=== PATIENT | female | born 2000 | race Caucasian/White ===

== ENCOUNTER 2023-10-14 19:44 | Inpatient (IN) | payer OTHER, SELFPAY ==
[2023-10-14 15:51] VITALS: BP 128/79
--- NOTE | 2023-10-14 16:47 | ED.GENMED ---
History of Present Illness
General
Chief Complaint: Urinary Symptoms
Source: patient
Exam Limitations: none
Time Seen by Provider: 10/14/23 16:37
Nursing documentation reviewed up to this point in time: agreed with
Travel History
Have you had any contact with someone who has COVID-19?: No
Do you have any symptoms of coronavirus? Fever > 100 degrees, chills, cough, shortness of breath, sore throat, loss of taste or smell, muscle aches, or headache?: Yes
Symptoms:: see above
History of Present Illness
History of Present Illness:
23 yo female here with flank pain, UTI symptoms fever. 8 days ago developed frequency of urination with small amounts. Increased her H2O intake and too cranberry pills, felt better for 2 days. 6 days ago developed low grade fevers, left flank pain,
headache, decreased appetite. Past 5 days has had fever 100-101, n/v, can't hold anything down, left flank pain worse and now in right flank as well. For past 2-3 days had had LLQ pain also.
Review of Systems
Review of Systems
Allergies reviewed?: Yes
All Other Systems: ROS reviewed and negative except as documented in HPI and ROS
Constitutional: Reports fever and fatigue
Respiratory: Denies trouble breathing
Cardiac: Denies chest pain
ABD/GI: Reports abdominal pain, nausea and vomiting; Denies diarrhea
: Reports frequency, difficulty voiding and urgency
Musculoskeletal: Reports no symptoms
Skin: Reports no symptoms
Neurological: Reports no symptoms
Phy Exam
Physical Exam
Physical Exam:
GENERAL: No acute distress. A&Ox3.
CONSTITUTIONAL: 100.4
EYES: clear, conjunctivae normal
ENMT: moist mucus membranes, Pharynx nl
RESPIRATORY: Regular respirations, nonlabored, lungs clear.
CARDIOVASCULAR: Regular rate and rhythm, no murmurs, no rubs.
GI: Soft, left flank tenderness, mild LLQ tenderness, normal BS
MUSCULOSKELETAL: Moves with ease. Well perfused.
SKIN: Warm, dry, pink
PSYCH: Normal mood and affect. Well kept, interactive and appropriate
NEUROLOGIC: Awake, alert and oriented. No focal neurological deficits
Course
Orders/Labs/Results
Orders:
Orders
10/14/23 16:46
Test Result ONCE
10/14/23 16:47
CT Abd/Pel (IV only)-DH only Urgent
Comment:
Reason For Exam: UTI sx, general abd pain, fever
0.9% Sodium Chloride 1000 ml [Nss] 1,000 ml IV BOLUS
10/14/23 17:04
Complete Blood Count/With Diff Urgent
Comprehensive Metabolic Panel Urgent
HCG, Serum Qualitative Screen Urgent
Lactic Acid Urgent
Lipase Urgent
Urinalysis Reflex To Culture Urgent
Date Specimen was Collected: 10/14/23
Time Specimen was Collected: 16:54
Urine Microscopic Reflex Cult Urgent
Blood Culture Q30M
ANNETTE Source: Blood/Venous
Specimen Description:
Urine Culture Urgent
ANNETTE Source: U
Specimen Description:
Date Specimen was Collected: 10/14/23
Time Specimen was Collected: 16:54
10/14/23 17:06
Blood Culture Q30M
ANNETTE Source: Blood/Venous
Specimen Description:
10/14/23 17:16
Acetaminophen [Tylenol] 1,000 mg PO NOW STA
10/14/23 17:20
Ondansetron Injectable [Zofran] 4 mg IV NOW STA
10/14/23 18:11
CefTRIAXone [Rocephin] 1,000 mg IV NOW STA
10/14/23 19:20
Admit/Transfer Patient As Directed
Co-Sign Provider:
Level of Care: Inpatient admission
Assign to:: Medical/Surgical
Physician / Group: Javier
Diagnosis: Pyelonephritis
Reason for Hospitalization: Pyelonephritis
Expected length of stay greater than two midnights?: Yes
ELOS- Estimated Length of Stay in days: 2
I certify the patient meets the requirements for IP care: Yes
Code Status As Directed
Resuscitation Status: Full Code
10/14/23 19:31
Ondansetron Injectable [Zofran] 4 mg .ROUTE .STK-MED ONE
10/14/23 19:32
Ondansetron Injectable [Zofran] 4 mg IV NOW STA
10/14/23 20:15
Acetaminophen [Tylenol] 650 mg PO Q4HPRN PRN
HYDROmorphone [Dilaudid] 0.5 mg IV Q4HPRN PRN
Ketorolac [Toradol] 10 mg IV Q6HPRN PRN
Lactated Ringers [Lr] 1,000 ml IV 125 mls/hr
Ondansetron Injectable [Zofran] 4 mg IV Q6HPRN PRN
10/14/23 20:15
Activity As Directed
Activity Level: Ambulate
Bladder Scan As Directed
Follow Bladder Retention/Intermittent Cath Algorithm?: Yes
PRN if no void in __ hours: 6
Frequency: Per Retention Algorithm
If Bladder Scan Result >: 400
then:: Straight cath
I/O [Intake/ Output] As Directed
Frequency: Per unit guidelines
Pneumatic Compression Sleeves As Directed
Type: Knee high
Straight Cath As Directed
Frequency: Per Retention Algorithm
Additional Instructions: straight cath as needed per acute urinary retention algorithm for 24 hrs
Additional Instructions: for bladder scan greater than 400 mL
Vital Signs As Directed
Frequency: Per unit guidelines
DX Deep Vein Thrombosis Video Routine
10/15/23 Breakfast
Regular
At Your Request: Full Participation
Does patient need a safe tray?: No
Basic Metabolic Panel IN AM
Complete Blood Count/No Diff IN AM
10/15/23 18:00
CefTRIAXone [Rocephin] 1,000 mg IV Q24H
Abnormal Lab Results
10/14/23
17:04
RBC 4.13 L 10^6/uL
(4.20-5.40)
Hct 34.9 L %
(37.0-47.0)
Absolute Lymphs (auto) 0.9 L 10^3/uL
(1.2-3.4)
Absolute Monos (auto) 0.9 H 10^3/uL
(0.1-0.6)
Neutrophils % 75.7 H %
(42.2-75.2)
Lymphocytes % 12.4 L %
(20.5-51.1)
Monocytes % 11.2 H %
(1.7-9.3)
Potassium 3.3 L mmol/L
(3.5-5.1)
Lipase 22 L U/L
(23-300)
Urine Ketones 3+ A
(Negative)
Ur Occult Blood Reflex 4+ A
(Negative)
Urine Nitrite (Reflex) Positive A
(Negative)
Leukocyte Esterase Rfl 2+ A
(Negative)
Urine WBC (Reflex) 26-30 A /HPF
(0-5)
Urine Bacteria (Reflex) Many A
(Negative)
10/14/23 17:04
10/14/23 17:04
Vital Signs
Initial and Last Documented VS:
Initial Vital Signs
Temp Pulse Resp BP Pulse Ox
100.4 F H 101 18 128/79 99
10/14/23 15:51 10/14/23 15:51 10/14/23 15:51 10/14/23 15:51 10/14/23 15:51
Last Documented Vital Signs
Temp Pulse Resp BP Pulse Ox
97.9 F 70 16 100/61 100
10/14/23 23:25 10/14/23 23:25 10/14/23 23:25 10/14/23 23:25 10/14/23 23:25
MDM/Problems Addressed
Differential Diagnosis Includes:
UTI, pyelonephritis
MDM/Problems Addressed:
23 yo female here with flank pain, UTI symptoms fever. 8 days ago developed frequency of urination with small amounts. Increased her H2O intake and too cranberry pills, felt better for 2 days. 6 days ago developed low grade fevers, left flank pain,
headache, decreased appetite. Past 5 days has had fever 100-101, n/v, can't hold anything down, left flank pain worse and now in right flank as well. For past 2-3 days had had LLQ pain also.
Temp 102.2 for this examiner
6:30 p.m.
CBC: no clinically significant abnormality
CMP: no clinically significant abnormality
U/A: Nitrite and Leukocyte pos, WBC 26-30, 4+occult blood, many bacteria
Ct abd/pelvis w po and iv contrast radiology report read: IMPRESSION:
1. SEVERE ACUTE LEFT PYELONEPHRITIS.
2. ACUTE CYSTITIS.
3. Mild hepatosplenomegaly.
4. Small amount of peritoneal fluid in the pelvic cul-de-sac.
Hospitalist notified of admission
*Critical Care Note
Total Time (30-74mins, 75-104mins- exclusive of procedures): Not Applicable
Patient Management
Social determinants of health affecting care: Strong social support (mom at bedside)
ED Attending Note
-
Portions of this chart may have been created with voice recognition software.� Occasional wrong word or��sound alike� substitutions may have occurred due to the inherent limitations of voice recognition software.
Discharge Plan
Departure
Patient Disposition: Admit
Date of Disposition: 10/14/23
Time of Disposition: 18:31
Admit to: Med/Surg
Presentation/result/management discussed w/ accepting MD/DO: Hospitalist
Condition: Fair
Discharge Problem:
Pyelonephritis of left kidney
Interventions
Interventions:
*Risk Screen - Suicide Last Done: 10/14/23 17:30
*General Assessment Last Done: 10/14/23 15:51
*Neglect/Abuse Screening Last Done: 10/14/23 15:51
ED- Fall Risk Assessment Last Done: 10/14/23 17:17
*ED COVID-19 Vaccine History Last Done: 10/14/23 15:51
*Nursing Disposition Last Done: 10/14/23 20:12
ED-Female Genitourinary Assessment Last Done: 10/14/23 17:17
Discharge Date and Time
Discharge Date/Time: 10/14/23 20:13
[2023-10-14] MEDS: NSS 1000 IV (17:06)
[2023-10-14 17:07] VITALS: BMI 21.6
[2023-10-14 17:17] LABS: % Basophils 0.3 % (0-2); % Eosinophils 0.1 % (0-6); % Immature Granulocytes 0.3 % (0-0.5); % Lymphocytes 12.4 % (20.5-51.1); % Monocytes 11.2 % (1.7-9.3); % Neutrophils 75.7 % (42.2-75.2); Absolute Lymphocytes 0.9 10^3/uL (1.2-3.4); Absolute Monocytes 0.9 10^3/uL (0.1-0.6); Absolute Neutrophils 5.8 10^3/uL (1.4-6.5); Hematocrit 34.9 % (37.0-47.0); Hemoglobin 12.5 g/dL (12.0-16.0); Mean Corp Hgb Conc. 35.8 g/dL (33.0-37.0); Mean Corpuscular Hgb 30.3 pg (27.0-31.0); Mean Corpuscular Volume 84.5 fL (81.0-99.0); Mean Platelet Volume 9.4 fL (7.4-10.4); Nucleated Red Blood Cells % 0 %; Platelet Count 230 10^3/uL (130-400); Red Blood Cell Count 4.13 10^6/uL (4.20-5.40); White Blood Cell Count 7.6 10^3/uL (4.8-10.8)
[2023-10-14 17:18] LABS: Urine Albumin Trace (Neg - Trace); Urine Bilirubin Negative (Negative); Urine Character Clear (Clear); Urine Color Yellow; Urine Glucose Negative (Negative); Urine Ketone 3+ (Negative); Urine Leukocyte 2+ (Negative); Urine Nitrite Positive (Negative); Urine Occult Blood 4+ (Negative); Urine Urobilinogen Negative (Neg - 1+)
[2023-10-14] MEDS: ZOFRAN 4 MG IV ×2 (17:26→19:32)
[2023-10-14] MEDS: TYLENOL 1000 MG PO (17:26)
[2023-10-14 17:27] LABS: Urine Bacteria Many (Negative); Urine Red Blood Cell 0-2 /HPF (0-2); Urine White Cell 26-30 /HPF (0-5)
[2023-10-14 17:33] LABS: HCG, Serum Qualitative Screen Negative
[2023-10-14 17:35] LABS: Lactic Acid 0.8 mmol/L (0.7-2.0)
[2023-10-14 17:36] LABS: ALT (SGPT) 12 U/L (0-35); AST (SGOT) 21 U/L (14-36); Alkaline Phosphatase 61 U/L (38-126); Blood Urea Nitrogen 10 mg/dl (7-17); Calcium 8.9 mg/dl (8.4-10.2); Carbon Dioxide 27 mmol/L (22-30); Chloride 98 mmol/L (98-107); Estimated Creatinine Clearance > 125 ml/min; Glucose 91 mg/dl (70-99); Lipase 22 U/L (23-300); Potassium 3.3 mmol/L (3.5-5.1); Sodium 136 mmol/L (135-145); Total Bilirubin 1.1 mg/dl (0.2-1.3); Total Protein 6.9 g/dl (6.3-8.2); eGFR > 60.00
[2023-10-14] MEDS: ROCEPHIN 1000 MG IV (18:28)
--- NOTE | 2023-10-14 19:25 | HPS.HSE ---
Family Physician
-
Family Physician: * NONE
Chief Complaint
-
Fever / Flank Pain
History of Present Illness
Patient is a 23y F with no significant PMH who presents to ED complaining of fever x 1 week. Patient states she initially started with urinary symptoms of burning, frequency, urgency last weekend. She drank lots of fluids and took cranberry
supplements and her symptoms seemed to improve. However, she then developed fevers with myalgias, fatigue and general achiness. She developed nausea and has had multiple episodes of non-bloody, bilious emesis. She has had difficulty tolerating PO
intake as a result. She reports pain in the L abdomen as well as pain across the mid back.
Patient denies history of frequent UTIs.
She denies any other current complaints or concerns.
She has no chronic health issues and takes no medications.
Medical History
Past Medical History
Past Medical History: Reports None
Past Surgical History: Reports Other
Additional Past Surgical History:
R ACL Repair
Social History
Tobacco: Smoker (Current some day smoker. < 10 pack years.)
Alcohol: None
Drug: None
Family History
Family History: Other (Mother: SLE MGF: Lung Cancer)
Allergies / Home Medications
Allergies reflects when Allergies were last updated in [facility].
Home Medications with original date entered in [facility]
Allergy/Medication List:
Allergies
Allergy/AdvReac Type Severity Reaction Status Date / Time
No Known Allergies Allergy Unverified 10/14/23 15:57
Home Medications
No Meds [No Current Medications] 10/14/23
Review of Systems
-
History Source: Patient
A 12 point ROS was completed and negative except as noted: Yes
Constitutional: Reports Fever, Fatigue and Chills
EENT: Denies Sore Throat
Respiratory: Denies Cough or Trouble Breathing
Cardiac: Denies Chest Pain or Palpitations
Abdomen/GI: Reports Abdominal Pain, Nausea and Vomiting; Denies Diarrhea or Constipated
: Reports Dysuria, Frequency and Flank Pain
Musculoskeletal: Denies Joint Pain or Edema
Neurological: Denies Dizzy or Headache
Physical Exam
Vital Signs
Vital Signs
Temp Pulse Resp BP Pulse Ox
99.4 F 101 18 128/79 99
10/14/23 18:29 10/14/23 15:51 10/14/23 15:51 10/14/23 15:51 10/14/23 15:51
Physical Exam
General: Other (23y F in no acute distress.)
HEENT: Moist mucous membranes and PERRLA
Respiratory: Clear; No Wheezes, Rales or Rhonchi
Cardiac: S1/S2 and Regular Rhythm; No Murmur
GI: Soft, Non Distended, Normal Bowel Sounds and Other (Mild L sided abdominal tenderness without rebound or guarding.)
Genito-urinary: Other (Left CVA tenderness.)
Musculoskeletal: No Clubbing, No Cyanosis and No Edema
Neuro: AO x 3
Laboratory Results
-
10/14/23 17:04
10/14/23 17:04
Laboratory Results
Lactic Acid 0.8 mmol/L (0.7-2.0) 10/14/23 17:04
Total Bilirubin 1.1 mg/dl (0.2-1.3) 10/14/23 17:04
AST 21 U/L (14-36) 10/14/23 17:04
ALT 12 U/L (0-35) 10/14/23 17:04
Alkaline Phosphatase 61 U/L (38-126) 10/14/23 17:04
Lipase 22 U/L (23-300) L 10/14/23 17:04
Impression/Plan
-
A/P: Patient is a 23y F with no significant PMH who presents to ED complaining of fevers x 1 week, abdominal pain, flank pain and N/V.
Left Pyelonephritis
Sepsis secondary to the above
- Admit for further evaluation and treatment.
- Patient presents with UTI / pyelo, fever and tachycardia.
- IV abx until fever-free x 24 hours then switch to PO medications to complete course.
- Supportive care including IVFs, pain control, antiemetics, etc.
- Follow for clinical improvement.
- Follow-up culture data and adjust abx therapy as needed.
Mild Hypokalemia
- Likely secondary to GI losses, N/V.
- IVFs with LR and follow for improvement.
DVT Prophylaxis: SCDs
Code Status: Full
[2023-10-14 20:26] VITALS: BP 113/75; BMI 21.7
[2023-10-14] MEDS: LR 1000 IV (20:35)
--- NOTE | 2023-10-14 20:57 | PTCARENOTE ---
Patient arrived from the ED via stretcher. Patient ambulated into the room, accompanied by mother. AAOx3, VSS. Oral temp of 97.8. No complaints of pain at this time. Patient oriented to the room. Call hastings is within reach.
[2023-10-14 23:25] VITALS: BP 100/61
[2023-10-15] MEDS: TYLENOL 650 MG PO ×3 (02:47→20:17)
[2023-10-15] MEDS: LR 1000 IV ×3 (05:21→22:17)
[2023-10-15 07:35] VITALS: BP 107/64
[2023-10-15 07:51] LABS: Hemoglobin 11.2 g/dL (12.0-16.0); Mean Corp Hgb Conc. 33.9 g/dL (33.0-37.0); Mean Corpuscular Hgb 29.9 pg (27.0-31.0); Mean Corpuscular Volume 88.2 fL (81.0-99.0); Mean Platelet Volume 9.6 fL (7.4-10.4); Platelet Count 223 10^3/uL (130-400); Red Blood Cell Count 3.74 10^6/uL (4.20-5.40); Red Cell Dist. Width 12.9 % (11.5-14.5); White Blood Cell Count 6.4 10^3/uL (4.8-10.8)
[2023-10-15 08:08] LABS: Blood Urea Nitrogen 7 mg/dl (7-17); Calcium 8.5 mg/dl (8.4-10.2); Carbon Dioxide 28 mmol/L (22-30); Chloride 102 mmol/L (98-107); Estimated Creatinine Clearance > 125 ml/min; Glucose 85 mg/dl (70-99); Potassium 3.5 mmol/L (3.5-5.1); Sodium 137 mmol/L (135-145); eGFR > 60.00
--- NOTE | 2023-10-15 08:16 | W.PN.HOSP.TC ---
Today's Communication/Plan
-
Continue IV fluids
Continue IV antibiotics
Antiemetics
Await cultures
Replete potassium
Assessment / Plan
Assessment / Plan
Gen-AAOx3, NAD
HEENT-NC, AT, anicteric, clear oral mm
Neck-supple
CV-reg, no M, +S1/S2
Lungs-clear B/L
Abd-soft, NT, ND
Ext-no edema
Musculoskeletal-no cyanosis, clubbing, mild left flank tenderness
Skin-warm and dry
Neuro-grossly non-focal
Psych-calm, cooperative
Sepsis due to acute left-sided pyelonephritis -hemodynamically stable. Continue IV fluids, IV antibiotics. Await cultures. Denies history of sepsis or UTIs. Was not on antibiotics prior to admission.
CT abdomen and pelvis on admission shows severe acute left-sided pyelonephritis, acute cystitis, mild hepatosplenomegaly.
Intractable vomiting related to have pyelonephritis and sepsis. Continue antiemetics as needed.
Hypokalemia -improving.
Full code
Anticipated Discharge: Within 24 hours
Subjective/Interval History
-
Date of Service: October 15, 2023
Patient seen and examined. Starting to feel better. No complaints.
Objective Data
-
Labs:
Laboratory Results
10/15/23
07:24
WBC 6.4
Hgb 11.2 L
Hct 33.0 L
Plt Count 223
Sodium 137
Potassium 3.5
Chloride 102
Carbon Dioxide 28
BUN 7
Creatinine 0.6
Glucose 85
Calcium 8.5
Vital Signs:
Vital Signs
Temp Pulse Resp BP Pulse Ox
99.4 F 70 16 100/61 100
10/15/23 02:57 10/14/23 23:25 10/14/23 23:25 10/14/23 23:25 10/14/23 23:25
I&O
10/14/23 10/15/23 10/16/23
06:59 06:59 06:59
Intake Total 4875 / 9742
Balance 9926 / 8826
Review of Systems
-
History Source: Patient
All other systems: Reviewed and negative
[2023-10-15] MEDS: KCL 20 MEQ PO (09:08)
[2023-10-15] MEDS: ZOFRAN 4 MG IV (09:10)
[2023-10-15 12:45] VITALS: BMI 21.7
[2023-10-15 15:30] VITALS: BP 112/70
--- NOTE | 2023-10-15 15:37 | CM ---
CM met with pt bedside
Pt resides alone in a 2nd floor apartment- no elevator
Full flight to apartment
Pt is independent with her ADLs- no DMEs
Pt is uninsured- noting her MA lapsed beginning of the year
PCP- none
Rx- [facility]
Referral made to [facility] for MA
Discharge Disposition- home, no needs anticipated
[2023-10-15] MEDS: STERILE WATER FOR INJECTION 10 ML IV (17:22)
[2023-10-15] MEDS: ROCEPHIN 1000 MG IV (17:22)
[2023-10-15 23:22] VITALS: BP 114/67
[2023-10-16] MEDS: NSS 1000 IV (05:40)
[2023-10-16 08:14] VITALS: BP 118/74
--- NOTE | 2023-10-16 09:23 | W.PN.HOSP.TC ---
Today's Communication/Plan
-
Continue IV antibiotics. Follow-up cultures
Assessment / Plan
Assessment / Plan
Gen-AAOx3, NAD
HEENT-NC, AT, anicteric, clear oral mm
Neck-supple
CV-reg, no M, +S1/S2
Lungs-clear B/L
Abd-soft, NT, ND
Ext-no edema
Musculoskeletal-no cyanosis, clubbing, mild left flank tenderness
Skin-warm and dry
Neuro-grossly non-focal
Psych-calm, cooperative
A/P:
Sepsis due to acute left-sided pyelonephritis -hemodynamically stable. Stop IV fluids, continue IV antibiotics. Cultures E. coli but sensitivity pending. Await cultures. Denies history of sepsis or UTIs. Was not on antibiotics prior to
admission. Check CESAR testing. She has a family history on her mother of systemic lupus and also she had multiple issues before with rash, arthralgias, intermittent in nature. I discussed with patient results needs to be evaluated in the right
clinical context and will need close follow-up as outpatient.
CT abdomen and pelvis on admission shows severe acute left-sided pyelonephritis, acute cystitis, mild hepatosplenomegaly.
Intractable vomiting related to have pyelonephritis and sepsis. Continue antiemetics as needed.
Anemia
Likely dilutional
Monitoring
Hypokalemia -improving. K 3.5 today
Full code
Anticipated Discharge: Within 24 hours
Subjective/Interval History
-
Date of Service: October 16, 2023
Patient feels better today. Afebrile
Objective Data
-
Vital Signs:
Vital Signs
Temp Pulse Resp BP Pulse Ox
98.7 F 71 14 118/74 98
10/16/23 08:14 10/16/23 08:14 10/16/23 08:14 10/16/23 08:14 10/16/23 08:14
I&O
10/15/23 10/16/23 10/17/23
06:59 06:59 06:59
Intake Total 2575 / 2575 4920 / 4920
Balance 2575 / 2575 4920 / 4920
[2023-10-16] MEDS: KCL 20 MEQ PO (09:28)
--- NOTE | 2023-10-16 12:09 | CM ---
Patient seen bedside, reports no needs to CM at this time. Patient on IV antibiotics. CM will continue to follow for all discharge planning needs.
Plan; home no needs anticipated.
[2023-10-16 15:46] VITALS: BP 117/73
[2023-10-16] MEDS: ROCEPHIN 1000 MG IV (17:52)
[2023-10-16] MEDS: STERILE WATER FOR INJECTION 10 ML IV (17:52)
[2023-10-16] MEDS: NSS IV (17:56)
[2023-10-16 23:55] VITALS: BP 101/53
[2023-10-17 06:35] LABS: % Basophils 0.7 % (0-2); % Lymphocytes 36.7 % (20.5-51.1); % Monocytes 8.8 % (1.7-9.3); % Neutrophils 51.8 % (42.2-75.2); Absolute Eosinophils 0.1 10^3/uL (0-0.7); Absolute Lymphocytes 1.7 10^3/uL (1.2-3.4); Absolute Monocytes 0.4 10^3/uL (0.1-0.6); Absolute Neutrophils 2.4 10^3/uL (1.4-6.5); Hematocrit 33.9 % (37.0-47.0); Hemoglobin 11.4 g/dL (12.0-16.0); Mean Corp Hgb Conc. 33.6 g/dL (33.0-37.0); Mean Corpuscular Hgb 29.3 pg (27.0-31.0); Mean Corpuscular Volume 87.1 fL (81.0-99.0); Mean Platelet Volume 9.5 fL (7.4-10.4); Nucleated Red Blood Cells % 0 %; Platelet Count 292 10^3/uL (130-400); Red Blood Cell Count 3.89 10^6/uL (4.20-5.40); Red Cell Dist. Width 13.2 % (11.5-14.5); White Blood Cell Count 4.6 10^3/uL (4.8-10.8)
[2023-10-17 07:09] LABS: Blood Urea Nitrogen 7 mg/dl (7-17); Calcium 9.4 mg/dl (8.4-10.2); Carbon Dioxide 24 mmol/L (22-30); Chloride 105 mmol/L (98-107); Estimated Creatinine Clearance > 125 ml/min; Glucose 112 mg/dl (70-99); Sodium 139 mmol/L (135-145); eGFR > 60.00
[2023-10-17 07:40] VITALS: BP 103/66
--- NOTE | 2023-10-17 08:22 | W.PN.HOSP.TC ---
Addendum entered and electronically signed by Arian San MD 10/18/23 16:08:
Mild malnutrition of acute illness
Original Note:
Today's Communication/Plan
-
Discharge planning today.
Assessment / Plan
Assessment / Plan
Gen-AAOx3, NAD
HEENT-NC, AT, anicteric, clear oral mm
Neck-supple
CV-reg, no M, +S1/S2
Lungs-clear B/L
Abd-soft, NT, ND
Ext-no edema
Musculoskeletal-no cyanosis, clubbing, mild left flank tenderness
Skin-warm and dry
Neuro-grossly non-focal
Psych-calm, cooperative
A/P:
Sepsis due to acute left-sided pyelonephritis -hemodynamically stable. Stop IV fluids, change IV antibiotics to oral today. Reviewed culture sensitivity E. coli. Denies history of sepsis or UTIs. Was not on antibiotics prior to admission.
Checking CESAR testing. She has a family history on her mother of systemic lupus and also she had multiple issues before with rash, arthralgias, intermittent in nature. I discussed with patient results needs to be evaluated in the right clinical
context and will need close follow-up as outpatient.
CT abdomen and pelvis on admission shows severe acute left-sided pyelonephritis, acute cystitis, mild hepatosplenomegaly.
Intractable vomiting related to have pyelonephritis and sepsis. Continue antiemetics as needed.
Anemia
Likely dilutional
Monitoring
Hypokalemia -improving. K 4 today
Full code
Anticipated Discharge: Today
Subjective/Interval History
-
Date of Service: October 17, 2023
Patient feels well today. Afebrile. Wants to go home
Objective Data
-
Labs:
Laboratory Results
10/17/23
06:06
WBC 4.6 L
Hgb 11.4 L
Hct 33.9 L
Plt Count 292 D
Sodium 139
Potassium 4.0
Chloride 105
Carbon Dioxide 24
BUN 7
Creatinine 0.6
Glucose 112 H
Calcium 9.4
Vital Signs:
Vital Signs
Temp Pulse Resp BP Pulse Ox
98.4 F 77 16 103/66 100
10/17/23 07:40 10/17/23 07:40 10/17/23 07:40 10/17/23 07:40 10/17/23 07:40
I&O
10/16/23 10/17/23 10/18/23
06:59 06:59 06:59
Intake Total 4920 / 4920 2160 / 2160
Balance 4920 / 4920 2160 / 2160
[2023-10-17] MEDS: KCL 20 MEQ PO (09:52)
[2023-10-17 12:00] VITALS: BP 108/64
--- NOTE | 2023-10-17 12:26 | W.DCSUMMARY ---
Discharge Summary
Discharge Data
Date of Admission: 10/14/23
Date of Discharge: 10/17/23
-
Pending Results: No
Hospital Course
Patient 23 years old female with no significant medical history came into the hospital with sepsis due to left-sided pyelonephritis. She was treated with IV antibiotics and IV fluids and her urine culture came in with E. coli and antibiotics were
tailored to sensitivity. Patient also wanted to be tested for CESAR for possible lupus since her family has SLE. She does not have any signs of flare at the moment but based on her description it is possible that she might have had some symptoms in
the past so encouraged her to follow-up with primary care as outpatient since current results are pending and she may need further evaluation. Otherwise, patient is hemodynamically stable and afebrile and her urinary symptoms subsided. She is
going to be discharged in stable condition today.
Discharge duration: 33 minutes
Discharge Plan
-
Patient Disposition: Home (Routine Discharge)
Discharge Diagnosis/Procedures: Urinary tract infection/pyelonephritis. Sepsis.
Diet: Low Cholesterol
Activity: As tolerated
Driving Restrictions: As prior to admission
Blood Work: Please PCP to order CBC, BMP within 1 week
Referrals:
Primary care, provider [Other] (See less than 1 week)
Prescriptions:
New
cephalexin 500 mg Capsule
500 mg PO BID 7 Days Qty: 14 0RF
Continued
acetaminophen [Tylenol] 325 mg Tablet
650 mg PO TIDPRN PRN (Reason: mild pain)
Discharge Orders:
Discharge Patient (As Directed); Ordered 10/17/23
Ordered By: Arian San
Discharge Date and Time
Discharge Date/Time: 10/17/23 14:26
Print Language: KOREAN
[2023-10-17] MEDS: KEFLEX 500 MG PO (13:34)
--- NOTE | 2023-10-17 15:04 | CM ---
CM reviewed chart, patient plan home no needs. CM will continue to follow for discharge planning needs.
Plan; home no needs.
--- NOTE | 2023-10-18 10:40 | PN.CDI ---
CDI
- -
CDI:
Physician Documentation Request
Admit Date: 10/14/23 19:44
Dear Doctor Jaswinder
Please review the following and provide your response in the progress notes.
Clinical Indicators:
10/14 Assessment, Patient meets the ASPEN/AND criteria for Mild Malnutrition of acute illness based on weight loss 6.1% over one week and poor intake of </= 75% for >/= 5 days.
Based on the information, which of the following most accurately represents the patient's nutritional status?
Mild Malnutrition
Other (please specify)Unable to determine
[place] Criteria ([facility] Hospitalist 2017)
2 or more criteria must be present for either
non severe or severe malnutrition
Note that the criteria differs related to the
presence of an acute or chronic illness
Acute Illness Chronic Illness
Energy Intake Non Severe: <75% for >7 days Non Severe: <75% for >1 month
Severe: <50% for >5 days Severe: <75% for >1 month
Weight Loss Non Severe: 1-2% over 1 week Non Severe: 5% over 1 month
5% over 1 month 7.5% over 3 months
7.5% over 3 months 10% over 6 months
1 year N/A 20% over 1 year
Severe: >2% over 1 week Severe: >5% over 1 month
>5% over 1 month >7.5% over 3 months
>7.5% over 3 months >10% over 6 months
1 year N/A >20% over 1 year
Body Fat Non Severe: Mild Decrease Non Severe: Mild Loss
Severe: Moderate Decrease Severe: Severe Loss
Muscle Mass Non Severe: Mild Decrease Non Severe: Mild Loss
Severe: Moderate Decrease Severe: Severe Loss
Fluid Accumulation Non Severe: Mild Accumulation Non Severe: Mild Accumulation
Severe: Moderate to severe Severe: Moderate to severe
accumulation accumulation
Reduced Tacking Machine Operator Strength Non Severe: N/A Non Severe: N/A
Severe: Measurably reduced Severe: Measurably reduced
Additional criteria that can be used to Determine if Mild or Moderate Malnutrition ([employer] Manual 2018)
Mild Moderate Severe
Albumin gm/dl <3.0 gm/dl <2.5 gm/dl <2.0 gm/dl
Pre Albumin mg/dl <15 gm/dl <10 mg/dl <5.0 mg/dl
BMI <18.5 <17 <16
Use of terms such as suspected, likely, concern for, or probable (associated with a specific diagnosis that is being evaluated, monitored, or treated as if it exists) are acceptable and can be coded in the inpatient setting, when documented at the
time of discharge.
Thank you,
Shruti Saez
CDI Specialist
Please use your independent medical judgment in providing your response.
[2023-10-19 20:56] LABS: ANA, IgG Reflex to HEp-2 None Detected (None Detected)
== END 2023-10-17 14:26 | disposition home or self-care (01) | DRG 872 ==
LOC: 4 EAST ACU 19:44
PROVIDERS: Registered Nurse; ADMITTING PHYSICIAN Hospitalist; ATTENDING PHYSICIAN Hospitalist; EMERGENCY PHYSICIAN Emergency Medicine
DX: A41.9 Sepsis, unspecified organism (principal); N12 Tubulo-interstitial nephritis, not specified as acute or chronic; E44.1 Mild protein-calorie malnutrition; F17.200 Nicotine dependence, unspecified, uncomplicated; E87.6 Hypokalemia; Z68.21 Body mass index [BMI] 21.0-21.9, adult; M32.9 Systemic lupus erythematosus, unspecified
CPT/HCPCS: 74177; 80048; 80053; 81003; 81015; 83605; 83690; 84703; 85025; 85027; 86038; 87040; 87086; 87088; 87186; 96374; 96375; 99285; 99406; Q9967